=== PATIENT | female | born 1965 ===

== ENCOUNTER 2016-07-07 19:42 | Emergency (ER) | payer SELFPAY ==
[~2016-07-07] VITALS: Ht 154.9 cm; Wt 75.0 kg
[2016-07-07 20:23] VITALS: Ht 154.9 cm; Wt 75.0 kg
== END 2016-07-07 20:45 | disposition left against medical advice (07) ==
LOC: FTE 19:42
DX: Z53.21 Procedure and treatment not carried out due to patient leaving prior to being seen by health care provider (principal)